=== PATIENT | female | born 1990 | race Caucasian/White ===

== ENCOUNTER 2017-07-20 21:00 | Emergency (ER) | payer SELFPAY ==
[2017-07-20 21:21] VITALS: BP 133/91
--- NOTE | 2017-07-20 21:39 | UC ---
UC General HPI - HPI Summary HPI Summary: PT NOTES A HX OF SCOLIOSIS. THE PAST 2 MONTH HAVING MORE LOW BACK PAIN. SAW PCP AT [facility] ON THURSDAY AND TX WITH [facility]ROL DOSE MIKEY AND PT REFERAL. TODAY, WHILE AT WORK, SUDDENLY BECAME SOB, WEAK, NOTED CENTRAL CHEST DISCOMFORT AND NEARLY FAINTED. PT'S FATHER CAUGHT HER. SHE STILL HAS A SENSE OF SOB AND HARD TO BREATHE. NO ABDOMINAL PAIN, FEVER, LOSS OF BOWEL/BLADDER DYSFUNCTION. NO CALF PAIN/SWELLING OR BCP USE. - History of Current Complaint Hx Obtained From: Patient Hx Last Menstrual Period: 07/17/17 Timing: Constant Pain Intensity: 10 Alleviating: NOTHING Associated Signs & Symptoms: Positive: Back Pain, Chest Pain, SOB. Negative: Fever <Danielle Ruiz - Last Filed: 07/20/17 21:51> <Sheela Gomes - Last Filed: 07/21/17 09:08> - History of Current Complaint Chief Complaint: UCGeneralIllness Stated Complaint: SOB,BACK PAIN,RACING HEART Time Seen by Provider: 07/20/17 21:06 - Allergy/Home Medications Allergies/Adverse Reactions: Allergies Allergy/AdvReac Type Severity Reaction Status Date / Time No Known Allergies Allergy Verified 07/20/17 21:21 Home Medications: Home Medications methylPREDNISolone [Medrol] 4 mg PO DAILY 07/20/17 [History Confirmed 07/20/17] PMH/Surg Hx/FS Hx/Imm Hx - Additional Past Medical History Additional PMH: scoliosis - Surgical History Surgical History: None - Social History Occupation: Employed Full-time Lives: With Family Alcohol Use: Weekly Substance Use Type: None Smoking Status (MU): Never Smoked Tobacco - Immunization History Vaccination Up to Date: Yes <Danielle Ruiz - Last Filed: 07/20/17 21:51> Review of Systems Respiratory: Shortness Of Breath Cardiovascular: Palpitations - fast rate, Chest Pain Musculoskeletal: Other: - pain low back Is Patient Immunocompromised?: No All Other Systems Reviewed And Are Negative: Yes <Danielle Ruiz - Last Filed: 07/20/17 21:51> Physical Exam Triage Information Reviewed: Yes Appearance: Well-Appearing Vital Signs: Initial Vital Signs Temp 99.6 F 07/20/17 21:11 Pulse 58 07/20/17 21:11 Resp 17 04/02/18 21:11 BP 133/91 07/20/17 21:11 Pulse Ox 100 07/20/17 21:11 Eye Exam: Normal ENT Exam: Normal Neck: Positive: Supple, Nontender, No Lymphadenopathy Respiratory: Positive: Lungs clear, Normal breath sounds, No respiratory distress Cardiovascular: Positive: No Murmur, Pulses Normal Abdomen Description: Positive: Nontender, No Organomegaly, Soft Bowel Sounds: Positive: Present Musculoskeletal: Positive: Other: - Gross scoliosis, tender to low back. ROM limited by pain and spinal deformity. No saddle anesthesia, 2+ reflexes x4. 5/5 strength x4. Steady gait. Psychological: Positive: Age Appropriate Behavior Skin Exam: Normal Skin: Negative: rashes <Danielle Ruiz - Last Filed: 07/20/17 21:51> Vital Signs: Initial Vital Signs Temp 99.6 F 07/20/17 21:11 Pulse 58 07/20/17 21:11 Resp 17 07/20/17 21:11 BP 133/91 07/20/17 21:11 Pulse Ox 100 07/20/17 21:11 <Sheela Gomes - Last Filed: 07/21/17 09:08> Diagnostics - EKG Cardiac Rate: Bradycardia Cardiac Rhythm: Sinus: Normal Ectopy: PACs - RARE ST Segment: Normal <Danielle Ruiz - Last Filed: 07/20/17 21:51> Course/Dx - Course Course Of Treatment: HX OF CP, SOB AND NEAR SYNCOPE THUS MUST EXCLUDE PE. PT AGREES TO ER TRANSFER, AUNT WILL DRIVE. REPORT GIVEN TO ROSHAN MITCHELL AT THE [facility] ER. VASOVAGAL FROM THE BACK IS MAY BE A FACTOR WELL. NO CAUDA EQUINA, ACUTE ABDOMEN. - Differential Dx - Multi-Symptom Provider Diagnoses: cp, sob, near syncope, low back pain <Danielle Ruiz - Last Filed: 07/20/17 21:51> Discharge - Sign-Out/Discharge Documenting (check all that apply): Discharge - Billing Disposition and Condition Condition: STABLE Disposition: HOME <Danielle Ruiz - Last Filed: 07/20/17 21:51> - Billing Disposition and Condition Condition: STABLE Disposition: HOME <Sheela Gomes - Last Filed: 07/21/17 09:08> - Discharge Plan Condition: Stable Disposition: HOME Referrals: CHEMA Prajapati [Primary Care Provider] - Additional Instructions: GO DIRECTLY TO THE ER DIAGNOSIS: CHEST PAIN, SHORT OF BREATH AND NEAR SYNCOPE Attestation Statement User Type: Provider - I was available for consult. This patient was seen by the PAULA. The patient was not presented to, seen by, or examined by me. -Mark Anthony <Sheela Gomes - Last Filed: 07/21/17 09:08>
== END 2017-07-20 21:52 | disposition home or self-care (01) ==
LOC: UCCORT 21:00
DX: R07.9 Chest pain, unspecified (principal); R06.02 Shortness of breath; R55 Syncope and collapse; M54.5 Low back pain
CPT/HCPCS: 93005; 99202; G0463

== ENCOUNTER 2019-02-04 15:39 | Emergency (ER) | payer OTHER ==
[2019-02-04 15:57] VITALS: BP 116/79
--- NOTE | 2019-02-04 16:28 | UC ---
Throat Pain/Nasal [place] HPI - HPI Summary HPI Summary: Left ear is very painful for approx a year. Been to an research and development scientist, told to f /u every couple of months. Throat is on fire, sinus congestion. Cold symptoms for approx 4 days. Pain is 8 to everything combined. - History of Current Complaint Chief Complaint: UCGeneralIllness Stated Complaint: ST,SINUS/RT EAR COMPLAINT,CONGESTION Time Seen by Provider: 02/04/19 16:02 Hx Obtained From: Patient Hx Last Menstrual Period: 07/17/17 Onset/Duration: Gradual Onset, Lasting Weeks Severity: Severe Pain Intensity: 8 Associated Signs & Symptoms: Positive: Dysphagia, Sinus Discomfort - Allergies/Home Medications Allergies/Adverse Reactions: Allergies Allergy/AdvReac Type Severity Reaction Status Date / Time No Known Allergies Allergy Verified 02/04/19 15:58 PMH/Surg Hx/FS Hx/Imm Hx Previously Healthy: Yes - Surgical History Surgical History: None - Family History Known Family History: Positive: Hypertension - Social History Alcohol Use: Occasionally Substance Use Type: None Smoking Status (MU): Never Smoked Tobacco - Immunization History Vaccination Up to Date: Yes Review of Systems All Other Systems Reviewed And Are Negative: Yes Constitutional: Positive: Fatigue ENT: Positive: Sore Throat, Ear Ache, Sinus Congestion Respiratory: Positive: Cough Is Patient Immunocompromised?: No Physical Exam Triage Information Reviewed: Yes Appearance: Well-Nourished, Ill-Appearing, Pain Distress Vital Signs: Initial Vital Signs Temp 100.0 F 02/04/19 15:53 Pulse 77 02/04/19 15:53 Resp 18 02/04/19 15:53 BP 116/79 02/04/19 15:53 Pulse Ox 99 02/04/19 15:53 Vital Signs Reviewed: Yes Eye Exam: Normal ENT: Positive: Pharyngeal erythema, Tonsillar swelling, Other - right external auditory canal red Dental Exam: Normal Neck exam: Normal Respiratory Exam: Normal Cardiovascular Exam: Normal Abdominal Exam: Normal Bowel Sounds: Positive: Present Musculoskeletal Exam: Normal Neurological Exam: Normal Psychological Exam: Normal Skin Exam: Normal Throat Pain/Nasal Course/Dx - Course Course Of Treatment: hx obtained, exam performed ,meds reviewed, treated for pharyngitis - Differential Dx/Diagnosis Provider Diagnosis: Pharyngitis Discharge ED - Sign-Out/Discharge Documenting (check all that apply): Patient Departure All imaging exams completed and their final reports reviewed: No Studies - Discharge Plan Condition: Stable Disposition: HOME Prescriptions: predniSONE [Prednisone 20 MG TAB] 40 mg PO DAILY #10 tablet Patient Education Materials: Pharyngitis (ED) Referrals: Dafne Avila MD [Primary Care Provider] - Additional Instructions: 1. your strep was negative 2. I am prescribing a few days of prednisone to help reduce the inflammation in the throat 3. I recommend, salt water gargles, increase fluids and ibuprofen as needed. 4. Follow up with Dr Avila as needed. - Billing Disposition and Condition Condition: STABLE Disposition: Home
== END 2019-02-04 16:35 | disposition home or self-care (01) ==
LOC: UCCORT 15:39
DX: J02.9 Acute pharyngitis, unspecified (principal); H92.02 Otalgia, left ear; R09.81 Nasal congestion
CPT/HCPCS: 87651; 99212; G0463